=== PATIENT | female | born 1945 | race Hispanic/Latino ===

== ENCOUNTER → 2018-08-08 | Outpatient (CLI) | payer MEDICARE | END | disposition home or self-care (01) | LOC: RAH 12:51 | PROVIDERS: ATTEND Family Medicine | DX: Z01.810 Encounter for preprocedural cardiovascular examination (principal); J44.9 Chronic obstructive pulmonary disease, unspecified; M47.815 Spondylosis without myelopathy or radiculopathy, thoracolumbar region | CPT/HCPCS: 71046 ==

== ENCOUNTER 2024-10-11 13:40 | Emergency (ER) | payer MEDICARE ==
[~2024-10-11] VITALS: Ht 167.6 cm; Wt 70.3 kg
--- NOTE | 2024-10-11 13:46 | ERN ---
General Chief Complaint: Mechanical Fall Stated Complaint: SENT FOR ABNORMAL CT Time Seen by MD: 13:41 Source: patient History of Present Illness Initial Comments PATIENT IS A AN 79-YEAR-OLD FEMALE COMING IN DUE TO AN ABNORMAL CT. PER PATIENT SHE WAS SENT TO THE IMAGING DEPARTMENT DUE TO A FALL WHICH OCCURRED TWO WEEKS AGO. PER FAMILY MEMBER AT BEDSIDE PATIENT RE-INJURED HERSELF ON WEDNESDAY AFTER SHE SUSTAINED ANOTHER FALL. PATIENT IS COMPLAINING OF THE HEADACHE OTHERWISE UNREMARKABLE PER Allergies: Coded Allergies: No Known Drug Allergies (Unverified Allergy, Intermediate, 10/11/24) ROS Dictation CONSTITUTIONAL: NO CHILLS, NO FEVER, WEAKNESS, NO DIAPHORESIS, NO MALAISE. HEAD/FACE: NO SIGNS OF TRAUMA. EENT: NO EYE PAIN, NO BLURRED VISION, NO TEARING, NO DOUBLE VISION, NO EAR PAIN, NO EAR DISCHARGE, NO NOSE PAIN, NO NASAL CONGESTION, NO THROAT PAIN, NO THROAT SWELLING, NO MOUTH PAIN. RESPIRATORY: NO COUGH, NO ORTHOPNEA, NO SOB, NO STRIDOR, NO WHEEZING. CARDIOVASCULAR: NO CHEST PAIN, NO EDEMA, NO PALPITATIONS, NO SYNCOPE. GASTROINTESTINAL/ABDOMINAL: NO ABDOMINAL PAIN, NO CONSTIPATION, NO DIARRHEA, NO NAUSEA, NO VOMITING. GENITOURINARY: NO ABNORMAL DISCHARGE, NO DYSURIA, NO FREQUENT URINATION, NO HEMATURIA. NO COMPLAINTS OF PAIN IN THE GENITALS. MUSCULOSKELETAL: NO BACK PAIN, NO GOUT, NO JOINT PAIN, NO JOINT SWELLING, NO MUSCLE PAIN, NO MUSCLE STIFFNESS, NO NECK PAIN. INTEGUMENTARY: NO CHANGE IN COLOR, NO CHANGE IN HAIR/NAILS, NO DRYNESS, NO LESION, NO LUMPS, NO RASH. NEUROLOGICAL/PSYCH: NO ANXIETY, NOT DEPRESSED, NO EMOTIONAL PROBLEM, NO HEADACHE, NO NUMBNESS, NO PRE-EXISTING DEFICIT, NO HISTORY OF SEIZURES, NO TREMORS, NO WEAKNESS. HEMATOLOGIC/LYMPHATIC: NOT ANEMIC, NO HISTORY OF BLOOD CLOTS, NO APPARENT BLEEDING, NO BRUISING, GLANDS NOT SWOLLEN. ALL SYSTEMS NEGATIVE, EXCEPT NOTED. Physical Exam Physical Exam Dictation VITAL SIGNS: REVIEWED. GENERAL APPEARANCE: ALERT, ORIENTED X3, NO ACUTE DISTRESS, OBESE. HEAD AND FACE: NON-TRAUMATIC. EYES: PERRL, PINK CONJUNCTIVAS, EYELID NO TRAUMA, ANTERIOR CHAMBER CLEAR. EARS: PINNAS INTACT AND NO SIGNS OF TRAUMA OR ERYTHEMA. EAR CANALS CLEAR AND NO DISCHARGE. TMS NO ERYTHEMA. NOSE: NO DISCHARGE, NO BLEEDING. OROPHARYNX: MOUTH NORMAL, TEETH NO CARIES, TONGUE PINK. PHARYNX CLEAR, NO ERYTHEMA. TONSILS NO EXUDATES, NO ABSCESSES NOTED. MUCOUS MEMBRANE MOIST. NECK: SUPPLE, NON-TENDER, NO THYROMEGALY, NO MASSES, NO JVD, NO BRUITS. BREAST: DEFERRED. CHEST: NO TENDERNESS, NO CREPITUS, NO PARADOXICAL MOVEMENT, NO RETRACTIONS. LUNGS: CLEAR, WELL-VENTILATED, SYMMETRIC, NO RALES, NO WHEEZING, NO RHONCHI, NO STRIDOR, GOOD BREATH SOUNDS BILATERALLY. HEART: REGULAR RATE, REGULAR RHYTHM, NO MURMUR, NO GALLOPS. VASCULAR: NO PERIPHERAL EDEMA. ABDOMEN: SOFT, POSITIVE BOWEL SOUNDS, NONDISTENDED, NO GUARDING, NONTENDER, NO REBOUND, NO MASSES NO HEPATOMEGALY, NO SPLENOMEGALY, NO RICH'S SIGN, NO HERNIAS. RECTAL: DEFERRED. GENITAL: DEFERRED. NEUROLOGICAL: NORMAL SPEECH, GROSS MOTOR FUNCTION INTACT, GROSS SENSORY FUNCTION INTACT. MUSCULOSKELETAL: NECK NONTENDER, FULL RANGE OF MOTION, BACK NONTENDER, FULL RANGE OF MOTION. EXTREMITIES: NONTENDER, FULL RANGE OF MOTION. SKIN: COLOR PINK, DRY, NO TURGOR, NO RASH, NO LACERATIONS, NO ABRASIONS, NO CONTUSIONS. LYMPHATICS: DEFERRED. Results Laboratory and Microbiology Lab and Micro Result Laboratory Tests Test 10/11/24 14:00 White Blood Count 8.2 K/uL (4.8-10.8) Red Blood Count 4.30 MIL/uL (4.00-5.50) Hemoglobin 12.7 g/dL (12.0-16.0) Hematocrit 38.3 % (36-48) Mean Corpuscular Volume 89.1 fL (79-99) Mean Corpuscular Hemoglobin 29.5 pg (27.0-33.0) Mean Corpuscular Hemoglobin Concent 33.2 g/dL (32.0-36.0) Red Cell Distribution Width 14.1 % (11.0-15.5) Platelet Count 273 K/uL (130-400) Mean Platelet Volume 9.1 fL (7.5-10.5) Immature Granulocyte % (Auto) 0.4 % (0-1) Neutrophils (%) (Auto) 74.2 % (40.0-77.0) Lymphocytes (%) (Auto) 17.0 % (21.0-51.0) L Monocytes (%) (Auto) 5.7 % (3.0-13.0) Eosinophils (%) (Auto) 2.1 % (0.0-8.0) Basophils (%) (Auto) 0.6 % (0.0-5.0) Neutrophils # (Auto) 6.1 K/uL (1.8-7.7) Lymphocytes # (Auto) 1.4 K/uL (1.0-4.8) Monocytes # (Auto) 0.5 K/uL (0.1-1.0) Eosinophils # (Auto) 0.17 K/uL (0.00-0.70) Basophils # (Auto) 0.05 K/uL (0.00-0.20) Absolute Immature Granulocyte (auto 0.03 K/uL (0-1) Nucleated Red Blood Cells 0.0 % (0.0-0.19) Labs Reviewed?: Yes EKG/XRAY/US/CT/MRI EKG Comment 10/11/2024 time 2:00 p.m. Ventricular rate 73 Sinus rhythm [place] [address] wave elevation or depression CT Scan Comment [address] [address] IMAGING REPORT Addendum PATIENT: EFRAIN HOU MR#: [id number] : 1945 SEX: F AGE: 79 LOCATION: [facility] ORDER [id number] STATUS: REG CLI REPORT#: [id number] SERVICE 1148 REASON: Headache, unspecified ORDERING PHYSICIAN: VIKI NEVAREZ MD PROCEDURE: HEAD WO - CT HEAD/BRAIN W/O CONTRAST ADDENDUM REPORT ADDENDUM: Results were shared by telephone at 2:26 pm on 10-11-24 and acknowledged by building energy retrofit technician Mr.Zach coyle /[place] EXAM: CT Head Without IV contrast. CLINICAL HISTORY: Headache, unspecified outpatient AMS, Confusion, recent fall please call [phone] with report TECHNIQUE: Axial computed tomography images of the head/brain without intravenous contrast. COMPARISON: None provided. 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 Chronic small vessel changes noted in deep white matter and periventricular region. 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 The left transverse sinus appears hyperintense, concerning for thrombus. No mass lesion. No CT evidence for acute territorial infarct. No midline shift. VENTRICLES: Ventricles remain normal in size and configuration. ORBITS: The orbits are unremarkable. SINUSES AND MASTOIDS: The paranasal sinuses and mastoid air cells are clear. BONES: No fracture. Hyperostosis of the frontal bone. SOFT TISSUES: Unremarkable. IMPRESSION: 1. 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 2. Probable left transverse sinus thrombosis. Consider MR venogram for further evaluation. /[place] DICTATED BY: KIMBERLEE FOWLER Jr., MD DATE: 10/11/24 1436 ELECTRONICALLY SIGNED BY: DATE: EXAM: CT Head Without IV contrast. CLINICAL HISTORY: Headache, unspecified outpatient AMS, Confusion, recent fall please call [phone] with report TECHNIQUE: Axial computed tomography images of the head/brain without intravenous contrast. COMPARISON: None provided. 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 Chronic small vessel changes noted in deep white matter and periventricular region. 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 The left transverse sinus appears hyperintense, concerning for thrombus. No mass lesion. No CT evidence for acute territorial infarct. No midline shift. VENTRICLES: Ventricles remain normal in size and configuration. ORBITS: The orbits are unremarkable. SINUSES AND MASTOIDS: The paranasal sinuses and mastoid air cells are clear. BONES: No fracture. Hyperostosis of the frontal bone. SOFT TISSUES: Unremarkable. IMPRESSION: 1. 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 2. Probable left transverse sinus thrombosis. Consider MR venogram for further evaluation. /[place] DICTATED BY: KIMBERLEE FOWLER Jr., MD DATE: 10/11/241407 ELECTRONICALLY SIGNED BY: KIMBERLEE FOWLER Jr., MD DATE: 10/11/241407 MDM MDM: DIFFERENTIAL DIAGNOSIS: Subdural hematoma, possible venous thrombosis RATIONALE: TESTS CONSIDERED AND ORDERED SECONDARY TO SHARED DECISION MAKING INCLUDE: LABS, ECG AND RADIOLOGY PREVIOUS OUTSIDE RECORDS REVIEWED: OLD ER VISITS. RISK OF COMPLICATION AND/OR MORBIDITY OR MORTALITY OF PATIENT MANAGEMENT: NONE MEDICATIONS-PER MEDICATION RECONCILIATION NEED FOR HOSPITALIZATION: PATIENT DOES MEET CRITERIA FOR HOSPITALIZATION. NEED FOR EMERGENCY MAJOR/MINOR SURGERY: NO THERE ARE NO SOCIAL CONCERNS WITH THIS PATIENT. PRESCRIPTION DRUG MANAGEMENT PRESCRIPTIONS WILL INCLUDE SYMPTOMATIC CARE PATIENT'S PRIOR EXTERNAL MEDICAL RECORDS FROM OTHER ER VISITS WERE REVIEWED BY ME INDICATED. PRIOR TESTING AND RESULTS FROM PREVIOUS VISITS WERE REVIEWED. PRIOR TESTS WERE TAKEN INTO ACCOUNT WITH MEDICAL DECISION MAKING AND RESOURCE UTILIZATION, INDEPENDENT HISTORIAN/HISTORIANS WERE USED TO OBTAIN COMPLETE MEDICAL HISTORY. I INDEPENDENTLY INTERPRETED THE TEST THAT WERE PERFORMED, RESULTS WERE REVIEWED BY ME AND CONSIDERED FINDINGS ON RADIOLOGY IF ORDERED. MEDICAL MANAGEMENT AND EXAMINATION INTERPRETATION DISCUSSIONS WERE HAD BY ME WITH OTHER QUALIFIED HEALTHCARE PROFESSIONALS INDICATED FOR THE PATIENT'S CARE. Patient will be transferred to Dr. Jana Coulter trauma surgeon accepted and ER MD as well. GCS 15 throughout ER visit we will be transferred in stable condition. ED Course Orders Procedure Category Date Status Time Cbc With Differential LAB 10/11/24 Complete 13:41 Chest 1vw RAD 10/11/24 Taken 13:41 12 Lead Ekg Tracing- EKG 10/11/24 Complete Technical 13:41 Magnesium LAB 10/11/24 In Process 13:41 Creatine Kinase, Total LAB 10/11/24 In Process 13:41 Troponin I High LAB 10/11/24 In Process Sensitivity 13:41 Urinalysis Profile LAB 10/11/24 Logged 13:41 Basic Metabolic Panel LAB 10/11/24 In Process 13:41 Vital Signs Date Time Temp Pulse Resp B/P (MAP) Pulse Ox O2 Delivery O2 Flow Rate FiO2 10/11/24 14:33 97.5 82 17 129/73 95 Room Air* 0 21 10/11/24 14:05 76 16 134/54 97 Room Air* 0 21 10/11/24 13:41 98.1 78 20 130/50 99 Room Air 0 DX & DISP Disposition: Transfer Departure Impression: Primary Impression: Bilateral subdural hematomas Additional Impression: Transverse sinus thrombosis Condition: Stable Referrals: VIKI NEVAREZ MD (PCP) JACQUIE SINGH MD Oct 11, 2024 13:46
--- NOTE | 2024-10-11 14:13 | EKG ---
[facility] Test Date: 2024-10-11 Test Time: 14:00:48 Pat Name: EFRAIN HOU Department: ED Room: Gender: F Shingle Weaver: [id number] : 1945 Requested By: JACQUIE SINGH Order Number: [id number] Reading MD: Miguel Barrera Measurements Intervals [place] Rate: 73 P: 82 [place]: 195 QRS: -33 QRSD: 81 T: 26 QT: 409 QTc: 453 Interpretive Statements Sinus rhythm Left axis deviation No previous ECG available for comparison Electronically Signed On 10-11-2024 15:38:42 CDT by Miguel Barrera Please click the below link to view image of tracing.
[2024-10-11 14:16] LABS: IMMATURE GRANULOCYTE ABSOLUTE 0.03 K/uL (0-1); NUCLEATED RED BLOOD CELLS 0.0 % (0.0-0.19); PLATELET COUNT (AUTO) 273 K/uL (130-400); RED BLOOD CELL COUNT(AUTO) 4.30 MIL/uL (4.00-5.50); RED CELL DISTRIBUTION WIDTH 14.1 % (11.0-15.5); WHITE BLOOD COUNT (AUTO) 8.2 K/uL (4.8-10.8)
[2024-10-11 14:43] LABS: CREATINE KINASE, TOTAL 140.0 U/L (21-232); CREATININE 0.7 mg/dL (0.5-1.0); GLOMERULAR FILTR. RATE CALC 87.0 mL/min (>90); GLUCOSE,RANDOM 109.0 mg/dL (70-105); SODIUM SERUM 141.0 mmol/L (136-145); UREA NITROGEN, BLOOD 15.0 mg/dL (7-18)
--- NOTE | 2024-10-11 14:55 | NUR ---
[id number] ERMD MADE AWARE
[2024-10-11 15:00] VITALS: BP 125/74; PULSE 76; RESP 17; TEMP 97.5; O2SAT 96
--- NOTE | 2024-10-11 15:13 | HMCIMG ---
EXAM: CR Chest, 1 View. CLINICAL HISTORY: WEAKNESS COMPARISON: Radiograph dated August 08, 2018 FINDINGS: Right Mediport catheter tip projects over the SVC. LUNGS: There is no mass, infiltrate, or acute pulmonary abnormality. PLEURAL SPACES: No pleural effusion or pneumothorax. MEDIASTINUM: The cardiomediastinal silhouette is within normal limits. BONES: No acute osseous abnormality. IMPRESSION: No acute cardiopulmonary pathology is evident. /[place]
--- NOTE | 2024-10-11 15:14 | NUR ---
REPORT GIVEN TO ARMAAN PENN AT [facility] [place] ER.
== END 2024-10-11 15:37 | disposition short-term general hospital (02) ==
LOC: EDH 13:40
DX: S06.5XAA Traumatic subdural hemorrhage with loss of consciousness status unknown, initial encounter (principal); G08 Intracranial and intraspinal phlebitis and thrombophlebitis; W18.39XA Other fall on same level, initial encounter; Y93.89 Activity, other specified; Y92.89 Other specified places as the place of occurrence of the external cause; Y99.8 Other external cause status
CPT/HCPCS: 36415; 71045; 80048; 82550; 83735; 84484; 85025; 93005; 99285

== ENCOUNTER → 2024-10-11 | Outpatient (CLI) | payer MEDICARE ==
--- NOTE | 2024-10-11 13:09 | HMCIMG ---
EXAM: CT Head Without IV contrast. CLINICAL HISTORY: Headache, unspecified outpatient AMS, Confusion, recent fall please call [phone] with report TECHNIQUE: Axial computed tomography images of the head/brain without intravenous contrast. COMPARISON: None provided. 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 Chronic small vessel changes noted in deep white matter and periventricular region. 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 The left transverse sinus appears hyperintense, concerning for thrombus. No mass lesion. No CT evidence for acute territorial infarct. No midline shift. VENTRICLES: Ventricles remain normal in size and configuration. ORBITS: The orbits are unremarkable. SINUSES AND MASTOIDS: The paranasal sinuses and mastoid air cells are clear. BONES: No fracture. Hyperostosis of the frontal bone. SOFT TISSUES: Unremarkable. IMPRESSION: 1. 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 2. Probable left transverse sinus thrombosis. Consider MR venogram for further evaluation. /[place]
== END | disposition home or self-care (01) ==
LOC: RAH 11:15
PROVIDERS: ATTEND Family Medicine
DX: S06.5XAA Traumatic subdural hemorrhage with loss of consciousness status unknown, initial encounter (principal); R51.9 Headache, unspecified; R41.0 Disorientation, unspecified; X58.XXXA Exposure to other specified factors, initial encounter; Y93.89 Activity, other specified; Y92.89 Other specified places as the place of occurrence of the external cause; Y99.8 Other external cause status
CPT/HCPCS: 70450